=== PATIENT | male | born 1950 | race Two or more races ===

== ENCOUNTER 2024-08-05 11:54 | Emergency (ER) | payer OTHER ==
[~2024-08-05] VITALS: Ht 157.5 cm; Wt 60.8 kg
[2024-08-05] MEDS ORDERED: ECOTRIN81 MG (12:06)
[2024-08-05] MEDS ORDERED: [UNRECOGNIZED DRUG - REMARK] (12:07)
[2024-08-05] MEDS ORDERED: DEXAMETHASONE SODIUM PHOSPHATE 4 MG/ML VIAL IM STA (13:14)
[2024-08-05] MEDS ORDERED: DEXAMETHASONE SODIUM PHOSPHATE 4 MG/ML VIAL ONE (13:35)
== END 2024-08-05 13:41 | disposition home or self-care (01) ==
LOC: ER 11:56
DX: M19.90 Unspecified osteoarthritis, unspecified site (principal); I10 Essential (primary) hypertension
CPT/HCPCS: 96372; 99282; J1100